=== PATIENT | male | born 1985 | race Caucasian/White ===

== ENCOUNTER 2017-02-12 17:12 | Emergency (ER) | payer OTHER ==
[~2017-02-12] VITALS: Ht 193 cm; Wt 90.6 kg
[~2017-02-12 17:12] MED LIST: COMBIVIR OR; CRIXIVAN400 MG OR; DOXYCYCL HYC100 MG OR; NO HOME MEDS
[2017-02-12 20:53] VITALS: BP 108/58
== END 2017-02-12 21:43 | disposition designated cancer center or children's hospital (05) | DRG 923 ==
LOC: ED 17:12
DX: T76.21XA Adult sexual abuse, suspected, initial encounter (principal); S01.512A Laceration without foreign body of oral cavity, initial encounter; S40.011A Contusion of right shoulder, initial encounter